=== PATIENT | female | born 1960 | race Hispanic/Latino ===

== ENCOUNTER 2020-01-06 20:31 | Emergency (ER) | payer SELFPAY ==
[~2020-01-06] VITALS: Ht 152.4 cm; Wt 58.1 kg
--- NOTE | 2020-01-06 20:42 | Emergency Department Note ---
History of Present Illnes History of Present Illness Chief Complaint: COVID PUI History of Present Illness This is a 59 year old female presents to the ED for fever, CP, and cough . Daughter with positive findings for COVID-19 Historian: Patient Arrival Mode: Car Onset (how long ago): day(s) (1) Location: generalized body aches Severity: moderate Duration (how long): day(s) (1) Timing of current episode: constant Progression: unchanged Chronicity: new Relieving factors: none Exacerbating factors: none Associated symptoms: Reports denies other symptoms, Reports shortness of breath Treatments prior to arrival: none Past Medical/Family History Physician Review I have reviewed the patient's past medical and family history. Any updates have been documented here. Past Medical History Recent Fever: Yes Clinical Suspicion of Infectio: Yes New/Unexplained Change in Ment: No Past Medical History: Hypertension Past Surgical History: None Social History Smoking Cessation: Never Smoker Alcohol Use: None Any Illegal Drug Use: No Review of Systems Review of Systems Constitutional: Reports fever EENTM: Reports no symptoms Cardiovascular: Reports no symptoms Respiratory: Reports cough Gastrointestinal: Reports no symptoms Genitourinary: Reports no symptoms Musculoskeletal: Reports no symptoms Integumentary: Reports no symptoms Neurological: Reports no symptoms Psychological: Reports no symptoms Endocrine: Reports no symptoms Hematological/Lymphatic: Reports no symptoms Physical Exam Related Data Allergies: Coded Allergies: No Known Allergies (Unverified , 01/06/20) Vital signs reviewed: Yes Physical Exam CONSTITUTIONAL Constitutional: Present well-developed, Present well-nourished HENT HENT: Present normocephalic, Present atraumatic, Present oropharynx clear/moist, Present nose normal HENT L/R: Present left ext ear normal, Present right ext ear normal EYES Eyes: Reports PERRL, Reports conjunctivae normal NECK Neck: Present ROM normal PULMONARY Pulmonary: Present effort normal, Present breath sounds normal CARDIOVASCULAR Cardiovascular: Present regular rhythm, Present heart sounds normal, Present capillary refill normal, Present normal rate GASTROINTESTINAL Abdominal: Present soft, Present nontender, Present bowel sounds normal GENITOURINARY Genitourinary: Present exam deferred SKIN Skin: Present warm, Present dry MUSCULOSKELETAL Musculoskeletal: Present ROM normal NEUROLOGICAL Neurological: Present alert, Present oriented x 3, Present no gross motor or sensory deficits PSYCHOLOGICAL Psychological: Present mood/affect normal, Present judgement normal Results Imaging Imaging results reviewed: Yes Impressions [facility] [address] [address] Patient Name: TY GUAJARDO MR #: [id number] : 1960 Age/Sex: 59/F Req #: [id number] Adm Physician: Ordered by: LATANYA DODD DO Report #: [id number] Location: ER Room/Bed: Procedure: [id number] DX/CHEST SINGLE (PORTABLE) Exam Date: 01/06/20 Exam Time: 2104 REPORT STATUS: Signed EXAMINATION: CHEST SINGLE (PORTABLE) INDICATION: ^Y ^wheezing ^[id number] ^2104 COMPARISON: None FINDINGS: AP view TUBES and LINES: None. LUNGS: Lungs are well inflated. Lungs are clear. There is no evidence of pneumonia or pulmonary edema. PLEURA: No pleural effusion or pneumothorax. HEART AND MEDIASTINUM: The cardiomediastinal silhouette is unremarkable. BONES AND SOFT TISSUES: No acute osseous lesion. Soft tissues are unremarkable. UPPER ABDOMEN: No free air under the diaphragm. IMPRESSION: No acute thoracic radiographic abnormality. Signed by: Jean-Paul Byrd MD on 01/06/2020 9:27 PM Dictated By: JEAN-PAUL BYRD MD 26 Transcribed By: GEORGE on 01/06/202126 COPY TO: LATANYA DODD DO~ Procedures 12 Lead ECG Interpretation ECG Interpretation : ECG: ECG 1 Diplomatic Interpreter: Interpreted by ED physician Date: Jan 06, 2020 Time: 20:56 Prior ECG tracings: reviewed Rhythm: sinus rhythm Rate: normal BPM: 79 QRS axis: normal ST segments normal: Yes T waves normal: No T wave inversion: II, III, V3, V4, V5 Clinical Impression: non-specific ECG Assessment & Plan Medical Decision Making MDM 59 yof with fever and myalgias. (+) contact with family members with similiar symptoms. COVID-19 highly suspected but testing deferred secondary to stable vital signs and high oxygen saturation on RA. Patient to be given Rx Azithromycin and albuterol. Patient to be given resources for outpatient testing center- Assessment & Plan Final Impression: (1) Viral syndrome Depart Disposition: HOME, SELF-CARE Medications in the ED Acetaminophen 975 mg ONCE ONCE PO Last administered on 01/06/20at 21:01; Admin Dose 975 MG; Start 01/06/20 at 21:00; Stop 01/06/20 at 21:01; Status DC Prednisone 60 mg ONCE STAT PO Last administered on 01/06/20at 21:01; Admin Dose 60 MG; Start 01/06/20 at 20:55; Stop 01/06/20 at 20:57; Status DC Albuterol INH RQ4H STAT INH Last administered on 01/06/20at 21:00; Admin Dose 16 GM; Start 01/06/20 at 20:55; Stop 01/06/20 at 20:56; Status DC Prednisone 60 mg STK-MED ONCE .ROUTE ; Start 01/06/20 at 21:05; Stop 01/06/20 at 20:59; Status DC LATANYA DODD DO Jan 06, 2020 20:42
[2020-01-06] MEDS ORDERED: PREDNISONE 20 MG TAB PO STA (20:55)
[2020-01-06] MEDS ORDERED: ALBUTEROL SULFATE HFA 8GM INHALATION AEROSOL INH STA (20:55)
[2020-01-06] MEDS ORDERED: ACETAMINOPHEN 325 MG TAB PO ONE (21:00)
[2020-01-06] MEDS ORDERED: PREDNISONE 20 MG TAB ONE (21:05)
--- NOTE | 2020-01-06 21:31 | Diagnostic Imaging Report ---
EXAMINATION: CHEST SINGLE (PORTABLE) INDICATION: ^Y ^wheezing ^[id number] ^2104 COMPARISON: None FINDINGS: AP view TUBES and LINES: None. LUNGS: Lungs are well inflated. Lungs are clear. There is no evidence of pneumonia or pulmonary edema. PLEURA: No pleural effusion or pneumothorax. HEART AND MEDIASTINUM: The cardiomediastinal silhouette is unremarkable. BONES AND SOFT TISSUES: No acute osseous lesion. Soft tissues are unremarkable. UPPER ABDOMEN: No free air under the diaphragm. IMPRESSION: No acute thoracic radiographic abnormality. Signed by: Roberto Narayanan MD on 01/06/2020 9:27 PM
== END 2020-01-07 00:52 | disposition home or self-care (01) ==
LOC: ER 20:44
DX: B34.9 Viral infection, unspecified (principal); R50.9 Fever, unspecified; R05 Cough; I10 Essential (primary) hypertension
CPT/HCPCS: 71045; 93005; 99283; J7512